=== PATIENT | male | born 1965 | race Two or more races ===

== ENCOUNTER 2018-06-15 00:12 | Emergency (ER) | payer OTHER ==
[~2018-06-15] VITALS: Ht 167.6 cm; Wt 97.1 kg
[~2018-06-15 00:12] MED LIST: CHLORTHALIDONE50 MG; MICARDIS40 MG
[2018-06-15] MEDS ORDERED: TENORMIN50 M1 (00:28)
[2018-06-15] MEDS ORDERED: PNEU16DI2 (00:28)
[2018-06-15] MEDS ORDERED: LOSARTAN-HCTZ1 EAC2 (00:28)
[2018-06-15] MEDS ORDERED: BENICAR40 MG (00:28)
== END 2018-06-15 04:10 ==
LOC: ER 00:12
DX: I10 Essential (primary) hypertension (principal)